=== PATIENT | male | born 1970 | race Caucasian/White ===

== ENCOUNTER 2017-09-24 15:26 | Emergency (ER) | payer MEDICARE ==
--- NOTE | 2017-09-24 16:43 | ERPHSYRPT ---
- History of Present Illness Time Seen by Provider: 09/24/17 16:23 Historian: patient, family (daughter) Patient Subjective Stated Complaint: mid abd pain for three days. hx abd hernia Triage Nursing Assessment: to room per w/c. skin w/d, color normal, resp nonlabored. abd lg, soft. normal bowel sounds. Physician History: CC: abd pain Hx: 47 y/o patient with hx of ventral hernia repaired at [facility] remotely. He has increased bulging. Has seen Dr Cantu who referred him back to [facility]. The bulging is worse. He has mid abd pain for 3 days. Normal urination. Normal bowels. No fever. No longer on anticoagulation. He had prior head injury with resultant right sided weakness. No vomiting. No chest pain. Allergies/Adverse Reactions: amoxicillin [Amoxicillin] Allergy (Mild, Verified 09/24/17 16:35) Rash Penicillins Allergy (Verified 09/24/17 16:35) Home Medications: Baclofen 20 mg PO QID 02/05/13 [History] Duloxetine HCl [Cymbalta] 60 mg PO DAILY 02/05/13 [History] Gabapentin [Neurontin] 800 mg PO QID 02/05/13 [History] Omeprazole 40 mg PO DAILY 09/24/17 [History] Tizanidine HCl 4 mg [Zanaflex 4 MG] 4 mg PO Q8H 09/24/17 [History] Hx Tetanus, Diphtheria Vaccination/Date Given: Yes Hx Influenza Vaccination/Date Given: No Hx Pneumococcal Vaccination/Date Given: No - Review of Systems Constitutional: No Fever, No Chills Eyes: No Symptoms Ears, Nose, & Throat: No Symptoms Respiratory: No Cough, No Dyspnea Cardiac: No Chest Pain Abdominal/Gastrointestinal: Abdominal Pain, No Nausea, No Vomiting, No Diarrhea Genitourinary Symptoms: No Dysuria Musculoskeletal: No Back Pain Skin: No Rash Neurological: No Headache All Other Systems: Reviewed and Negative - Past Medical History Pertinent Past Medical History: Yes Neurological History: Other ENT History: No Pertinent History Cardiac History: No Pertinent History Respiratory History: Asthma Endocrine Medical History: Other Musculoskeletal History: No Pertinent History GI Medical History: GERD, Ulcer History: No Pertinent History Psycho-Social History: No Pertinent History Male Reproductive Disorders: No Pertinent History Other Medical History: Traumatic brain injury - Past Surgical History Past Surgical History: Yes Neuro Surgical History: Neurological Surgery Cardiac: No Pertinent History Respiratory: No Pertinent History Gastrointestinal: Hernia Repair, Other Genitourinary: No Pertinent History Musculoskeletal: Orthopedic Surgery Male Surgical History: No Pertinent History Other Surgical History: Peg tube lower bowel - Social History Smoking Status: Current every day smoker How long have you smoked: 30 Exposure to second hand smoke: Yes Drug Use: none Patient Lives Alone: No - Nursing Vital Signs Nursing Vital Signs: Initial Vital Signs Temperature 98.8 F 09/24/17 16:23 Respiratory Rate 18 09/24/17 16:23 Blood Pressure 128/91 09/24/17 16:23 Pain Scale Pain Intensity 7 - Physical Exam General Appearance: alert Ears, Nose, Throat Exam: moist mucous membranes Neck Exam: normal inspection, non-tender, supple Respiratory Exam: normal breath sounds Cardiovascular Exam: regular rate/rhythm Gastrointestinal/Abdomen Exam: soft, hernia (large vental bulging left), No tenderness, No guarding, No ecchymosis Male Genitalia Exam: normal genitalia Back Exam: normal inspection, normal range of motion Extremity Exam: normal inspection, normal range of motion Neurologic Exam: alert, oriented x 3, cooperative, sensation nml, No motor deficits Skin Exam: warm, dry, No rash - Course Nursing assessment & vital signs reviewed: Yes Ordered Tests: Active Orders 24 hr Category Date Time Status Clean Catch Urine Specimen STAT Care 09/24/17 16:32 Active IV Insertion STAT Care 09/24/17 16:32 Active NPO (ED) STAT Care 09/24/17 16:32 Active ABDOMEN AND PELVIS W CONTRAST [CT] Stat Exams 09/24/17 16:32 Taken CBC W DIFF Stat Lab 09/24/17 16:47 Completed CMP Stat Lab 09/24/17 16:47 Completed LIPASE Stat Lab 09/24/17 16:47 Completed Lactic Acid Stat Lab 09/24/17 16:32 Ordered UA W/RFX UR CULTURE Stat Lab 09/24/17 17:00 Completed Lab/Rad Data: Laboratory Result Diagrams 09/24/17 16:47 09/24/17 16:47 Laboratory Results 09/24/17 09/24/17 09/24/17 Range/Units 17:00 16:47 16:47 WBC 8.8 (4.0-10.5) K/mm3 RBC 5.31 (4.1-5.6) M/mm3 Hgb 16.7 (12.5-18.0) gm/dl Hct 48.7 (42-50) % MCV 91.7 (78-100) fl MCH 31.5 (26-32) pg MCHC 34.3 (32-36) g/dl RDW 13.3 (11.5-14.0) % Plt Count 223 (150-450) K/mm3 MPV 10.8 H (6-9.5) fl Gran % 63.4 (36.0-66.0) % Lymphocytes % 22.1 L (24.0-44.0) % Monocytes % 7.2 (0.0-12.0) % Eosinophils % 6.7 H (0.00-5.0) % Basophils % 0.6 (0.0-0.4) % Basophils # 0.05 (0-0.4) Sodium 140 (136-145) mEq/L Potassium 3.9 (3.5-5.1) mEq/L Chloride 104 (98-107) mEq/L Carbon Dioxide 26.7 (21-32) mEq/L Anion Gap 13.6 (5-15) MEQ/L BUN 12 (9-20) mg/dL Creatinine 1.06 (0.55-1.30) mg/dl Estimated GFR > 60 ML/MIN Glucose 87 (70-110) MG/DL Calcium 9.1 (8.5-10.1) mg/dL Total Bilirubin 0.40 (0.2-1.0) mg/dL AST 10 L (15-37) U/L ALT 18 (12-78) U/L Alkaline Phosphatase 88 (46-116) U/L Serum Total Protein 7.4 (6.4-8.2) gm/dL Albumin 4.0 (3.4-5.0) g/dL Lipase 122 (73-393) U/L Ur Collection Type VOID Urine Color YELLOW (YELLOW) Urine Appearance CLEAR (CLEAR) Urine pH 7.0 (5-6) Ur Specific [place] 1.005 (1.005-1.025) Urine Protein NEGATIVE (Negative) Urine Ketones NEGATIVE (NEGATIVE) Urine Blood NEGATIVE (0-5) Soren/ul Urine Nitrite NEGATIVE (NEGATIVE) Urine Bilirubin NEGATIVE (NEGATIVE) Urine Urobilinogen NORMAL (0-1) mg/dL Ur Leukocyte Esterase NEGATIVE (NEGATIVE) Urine Culture Reflexed NO (NO) Urine Glucose NEGATIVE (NEGATIVE) mg/dL Specimen Received 09/24/17 1600 - Progress Progress Note: 09/24/17 18:40 CT abd/pelvis: [email or web address] 6:23 PM 09/24/2017: No comps. Pt's arms overlie abdomen limiting these levels. Bibasilar ATX. Large ventral hernia at least 22cm wide w/ herniated small/large bowel loops w/o obstruction or incarceration. Normal appy. Mild diffuse fecal stasis. Moderate distended GB w/o stones. Fatty liver. R sided epidural spinal lead & IVC filter. Pt stable. No complaints here. Instr given. Counseled pt/family regarding: lab results, diagnosis, need for follow-up, rad results - Departure Time of Disposition: 18:45 Departure Disposition: Home Clinical Impression: Ventral hernia without obstruction or gangrene Condition: Stable Critical Care Time: No Referrals: KATH DURAN [Primary Care Provider] - Instructions: Abdominal Hernia (DC) Additional Instructions: ABDOMINAL PAIN 1. There are several different causes for abdominal pain, some of which may not be able to be identified on initial examination. 2. The important thing to remember is that bodily functions can change in a short period of time. If you notice any of the following symptoms, return to the emergency department or consult your doctor immediately: A. Worsening pain or no improvement in the next 12 hours. B. Increasing, severe abdominal pain C. Blood in stool D. Black stools E. Persistent vomiting F. Fever or chills or other symptoms Follow up with a surgeon thru [facility]. Tylenol as directed for discomfort.
[2017-09-24 16:57] LABS: BASOPHIL % 0.6 % (0.0-0.4); Basophil (Absolute #) 0.05 (0-0.4); Eosinophil % 6.7 % (0.00-5.0); Eosinophil (Absolute #) 0.59 (0-0.5); Granulocyte Absolute (ANC) 5.55 (1.4-6.9); Granulocytes % 63.4 % (36.0-66.0); Hematocrit 48.7 % (42-50); Hemoglobin 16.7 gm/dl (12.5-18.0); Lymphocyte (Absolute #) 1.93 (1.0-4.6); Lymphocytes % 22.1 % (24.0-44.0); Mean Cell Volume 91.7 fl (78-100); Mean Corpuscular Hemoglobin 31.5 pg (26-32); Mean Corpuscular Hgb Concent. 34.3 g/dl (32-36); Mean Platelet Volume 10.8 fl (6-9.5); Monocyte (Absolute #) 0.63 (0.0-1.3); Monocytes % 7.2 % (0.0-12.0); Platelet Count 223 K/mm3 (150-450); Red Blood Count 5.31 M/mm3 (4.1-5.6); Red Cell Distribution Width 13.3 % (11.5-14.0); White Blood Count 8.8 K/mm3 (4.0-10.5)
[2017-09-24 17:20] LABS: ALKALINE PHOSPHATASE 88 U/L (46-116); ANION GAP 13.6 MEQ/L (5-15); BLOOD UREA NITROGEN 12 mg/dL (9-20); CHLORIDE 104 mEq/L (98-107); Calcium 9.1 mg/dL (8.5-10.1); Carbon Dioxide 26.7 mEq/L (21-32); Creatinine 1 1.06 mg/dl (0.55-1.30); EST GLOMERULAR FILTRATION RATE > 60 ML/MIN; Glucose 87 MG/DL (70-110); LIPASE 122 U/L (73-393); Potassium 3.9 mEq/L (3.5-5.1); SGOT/AST 10 U/L (15-37); SGPT/ALT 18 U/L (12-78); SODIUM 140 mEq/L (136-145); Total Protein 7.4 gm/dL (6.4-8.2)
[2017-09-24 17:30] LABS: Appearance CLEAR (CLEAR); Bilirubin NEGATIVE (NEGATIVE); Blood NEGATIVE Ery/ul (0-5); Glucose NEGATIVE (NEGATIVE); Ketones NEGATIVE (NEGATIVE); Leukocyte Esterase NEGATIVE (NEGATIVE); Nitrite NEGATIVE (NEGATIVE); Protein,Urine Dip NEGATIVE (Negative); Specific Gravity 1.005 (1.005-1.025); Urobilinogen NORMAL mg/dL (0-1)
[2017-09-24 19:06] VITALS: PULSE 82
[2017-09-24 19:08] VITALS: BP 122/79
--- NOTE | 2017-09-25 08:49 | XRAY ---
Indication: Abdominal pain for days. Multiple contiguous axial images obtained through the abdomen and pelvis using 80 cc Isovue 370 contrast only. Comparison: None. Images through the upper abdomen slightly degraded by patient's overlying arms. Lung bases demonstrates mild/moderate bibasilar dependent atelectasis. No consolidation or large effusion. Heart is not enlarged. Noncontrasted stomach and bowel loops appear nonobstructed. Mild scattered colonic fecal debris throughout. There is a very large ventral hernia at least 22 cm wide. Several small and large bowel loops herniate without obstruction/incarceration. Normal appendix. No free fluid/air. Gallbladder is moderately distended without gallstones or abnormal biliary distention. Diffusely fatty liver. A few tiny calcified splenic granulomas. Remaining pancreas, adrenal glands, kidneys, ureters, and bladder appear unremarkable. Minimal aortic calcifications. No AAA or pathologic retroperitoneal lymphadenopathy. IVC filter and right-sided epidural spinal lead in situ. Osseous structures intact with mild/moderate degenerative spondylosis and mild levoscoliosis. Impression: 1. Very large ventral hernia with herniated small/large bowel loops without complications. 2. Distended gallbladder without gallstones. Ultrasound may yield further information if clinically warranted. 3. Fatty liver. CT DI 23.68
== END 2017-09-24 19:09 | disposition home or self-care (01) ==
LOC: ED 15:26
DX: K43.9 Ventral hernia without obstruction or gangrene (principal)
CPT/HCPCS: 36000; 36415; 74177; 80053; 81002; 83690; 85025; 99284; 99285